=== PATIENT | female | born 1985 | race Caucasian/White ===

== ENCOUNTER 2023-12-20 11:44 | Outpatient (CLI) | payer OTHER, SELFPAY ==
[2023-12-20 12:06] LABS: Basophils Absolute Auto 0.03 K/mm3 (0.00-0.10); Basophils Percent Auto 0.4 % (0.0-1.0); Eosinophils Absolute Auto 0.05 K/mm3 (0.02-0.50); Eosinophils Percent Auto 0.7 % (1.0-6.0); Hematocrit 42.3 % (35.0-49.0); Immature Granulocyte Absolute 0.03 K/mm3 (0.00-0.00); Immature Granulocyte Percent A 0.4 % (0.0-0.0); Lymphocytes Absolute Auto 2.46 K/mm3 (1.10-4.50); Mean Corpuscular HGB Conc 33.1 g/dL (32-36); Mean Corpuscular Hemoglobin 30.6 pg (27.0-31.0); Mean Corpuscular Volume 92.4 fL (78.0-102.0); Mean Platelet Volume 10.4 fl (9.2-11.8); Monocytes Absolute Auto 0.29 K/mm3 (0.10-0.90); Neutrophils Absolute Auto 4.38 K/mm3 (1.70-7.20); Neutrophils Percent Auto 60.5 % (50.0-70.0); Platelet Count Result 357 K/mm3 (150-420); Red Blood Count 4.58 M/mm3 (4.20-5.40); Red Cell Distribution Width 13.5 % (11.6-14.4); White Blood Count 7.2 K/mm3 (4.8-10.8)
[2023-12-20 13:11] LABS: Alanine Aminotransferase 20 U/L (14-59); Albumin Level 3.6 g/dL (3.4-5.0); Alkaline Phosphatase 97 U/L (46-116); Anion Gap 13 mmol/L (4-12); Aspartate Amino Transferase 16 U/L (15-37); Bilirubin,Total 0.3 mg/dL (0.00-1.00); Blood Urea Nitrogen 13 mg/dL (7-18); Calcium 8.8 mg/dL (8.5-10.1); Carbon Dioxide 24 mmol/L (21-32); Chloride 102 mmol/L (98-108); Cholesterol 176 mg/dL (0-200); Estimated Glomerular Filt Rate > 60; Glucose 88 mg/dL (70-99); HDL Direct 52 mg/dL (40-60); LDL Cholesterol Calculated 110 mg/dL (<130); Osmolality Calculated 287 mOsm/kg (285-295); Potassium 4.2 mmol/L (3.5-5.1); Sodium 139 mmol/L (136-145); Total Protein 6.8 g/dL (6.4-8.2); Triglycerides 68 mg/dL (0-150)
[2023-12-20 13:24] LABS: Thyroid Stimulating Hormone Reflex 2.41 u/IU/mL (0.36-3.74)
== END 2023-12-20 11:45 | disposition home or self-care (01) ==
PROVIDERS: PCP Family Medicine; Visit Provider Family Medicine
DX: Z00.00 Encounter for general adult medical examination without abnormal findings (principal); E03.9 Hypothyroidism, unspecified
CPT/HCPCS: 36415; 80053; 80061; 84443; 85025

== ENCOUNTER 2024-03-15 11:58 | Outpatient (NON) | payer OTHER, SELFPAY | END 2024-03-15 11:59 | disposition home or self-care (01) | PROVIDERS: Visit Provider Family Medicine | DX: D23.62 Other benign neoplasm of skin of left upper limb, including shoulder (principal) | CPT/HCPCS: 88305 ==

== ENCOUNTER 2024-07-24 13:35 | Outpatient (CLI) | payer OTHER, SELFPAY ==
--- NOTE | ~2024-07-24 | XR_ITS ---
Clinical Indication: Cough, fever PA and lateral views of the chest: Comparison: None Findings: The lungs are clear, without evidence of focal consolidation or pleural effusion. Cardiome diastinal silhouette is within normal limits. Bones and soft tissues are unremarkable. Impression: Normal chest. Reviewed, dictated and finalized at [facility]. [facility] Impression: Normal chest.
== END 2024-07-24 13:36 | disposition home or self-care (01) ==
LOC: CHSIMG 13:36
PROVIDERS: PCP Family Medicine; Visit Provider Family Medicine
DX: R05.9 Cough, unspecified (principal)
CPT/HCPCS: 71046

== ENCOUNTER 2025-02-25 12:47 | Outpatient (CLI) | payer OTHER, SELFPAY ==
--- NOTE | ~2025-02-25 | MM_ITS ---
EXAMINATION: MM screening [facility] BI w rojas INDICATION: Asymptomatic, referred for screening mammogram COMPARISON: Baseline TECHNIQUE: Digital Breast Tomosynthesis CC, MLO views of Both breasts were obtained with computer-ai ded detection to assist in interpretation of the study. FINDINGS: The breasts are heterogeneously dense, which may obscure small masses. There is a focal asymmetry in the superior lateral right breast at middle depth, centered at 11.2 cm posterior to the nipple best visualized on the tomographic images MLO slice 61, CC slice 65. In addit ion, there is an asymmetry containing few punctate calcifications seen on the cc view in the retroare olar region at posterior depth centered at 15 cm posterior to the nipple and best visualized on tomog raphic images CC slice 57. Elsewhere, there are no mammographic features of malignancy. IMPRESSION: 1. Right breast asymmetries. 2. No evidence of malignancy in the Left breast. RECOMMENDATION: Right breast Diagnostic mammogram with true lateral, appropriate spot compression views and an ultras ound if needed. BI-RADS Category 0: Incomplete: Needs additional imaging evaluation. Reviewed, dictated and finalized at location B. IMPRESSION: 1. Right breast asymmetries. 2. No evidence of malignancy in the Left breast. RECOMMENDATION: Right breast Diagnostic mammogram with true lateral, appropriate spot compressi on views and an ultrasound if needed. BI-RADS Category 0: Incomplete: Needs additional imaging evaluation.
--- OUTSIDE RECORDS SUMMARY | 2025-02-25 12:51 | XMS_ITS | Encounter Summary ---
Author Organization [facility] Address [address] [place] [address] Care Team Providers Care Supervisor Receiving And Processing Name Role Phone Keisha Beckwith MD Primary Care Provider [phone] Encounter Details Date Type Department Care Team (Late st Contact Info) Description 01/12/2021 Lab Requisition [facility] [address] [place] [address] Autumn Faustin MD [address] [facility] [address] [place] [id number] Illness, unspecified Social History Tobacco Use Types Packs/Day Years Used Date Smoking Tobacco: Former Cigarettes Smokeless Tobacco: Never Comments:Quit 2016 Alcohol Use Standard Drinks/Week Comments Yes 0 (1 standard drink = 0.6 oz pur e alcohol) Occasional Comments No Sex and Gender Information Value Date Recorded Sex Assigned at Not on file Legal Sex Female 10:51 AM CDT Gender Identity Not on file Sexual Orientation Not on file 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 01/13/2021 1:44 PM CDT [facility] at 1344 CDT Microscopic Description and Comment Sections show a dermal glandular proliferation with papillomatosis and apocrine metaplasia. The overlying epidermis is slightly thickened with focal mild perivascular inflammation. There is no significant cytologic atypia, necrosis or increase in mitotic activity. The lesion extends to the inked margin. Negative for carcinoma. Reviewed in intradepartmental consensus. 01/13/2021 1:44 PM CDT [facility] Clinical History Ulcer of right nipple 01/13/2021 1:44 PM CDT [facility] Materials Received Received are 1 slide(s) labeled [id number] along with a copy of the outside pathology report. The materials originate from [facility], [address] [place] [address]. All original materials are returned to the referring institution, along with a copy of our final report. 01/13/2021 1:44 PM CDT [facility] Disclaimer The performance characteristics of all immunohistochemical and indirect immunofluorescence stains (if any) cited in this report were determined by the Histopathology [facility] of [facility]. Some of these tests were developed by our own laboratory and have not been cleared or approved by the US Food and Drug Administration. The FDA does not require this test to go through premarket FDA review. These tests are used for clinical purposes. They should not be regarded as investigational or for research. This laboratory is certified under the Clinical Laboratory Improvement Amendments (CLIA) as qualified to perform high complexity clinical laboratory testing. This case has been personally reviewed and interpreted by the attending (teaching) pathologist. 01/13/2021 1:44 PM CDT [facility] Case Report Surgical Pathology Report Case: [id number] Authorizing Provider: Autumn Faustin MD Collected: 01/12/2021 02:02 PM Ordering Location: [facility] Path[facility] Lab Received: 01/12/2021 02:02 PM Pathologist: Zhane Patel Mai, DO Specimen: Slide Consultation 01/13/2021 1:44 PM CDT [facility] Embedded Images 01/13/2021 1:44 PM CDT [facility] Pathology/Cytolo gy SURGICAL PATHOLOGY CONSULTATION AND REPORT ON REFERRED SLIDES PREPARED ELSEWHERE / Unknown 01/12/2021 2:02 PM CDT 01/12/2021 2:02 PM CDT Autumn Faustin MD LAB - PATHOLOGY/CYTOLOGY OR DERABLES Final Result Performing Organization Address City/State/[facility] Co de Phone Number [facility] [address] [phone] documented in this encounter Visit Diagnoses Diagnosis Illness, unspecified documented in this encounter Care Teams Supervisor Receiving And Processing Relationship Specialty Start Date End Date Keisha Beckwith MD [address] [place] [address] PCP - General 12/19/20 documented as of this encounter
--- OUTSIDE RECORDS SUMMARY | 2025-02-25 12:51 | XMS_ITS | Clinical Summary ---
Author Organization [facility] Address [address] [place] [address] Care Team Providers Care Aircraft Maintenance Supervisor Name Role Phone None, Provider MD Primary Care Provider Unavaila ble Allergies No known active allergies Medications No known medications Social History Tobacco Use Types Packs/Day Years Used Date Smoking Tobacco: Never Smokeless Tobacco: Never Tobacco Cessation:Counseling Given: Not Answered Comments No Sex and Gender Information Value Date Recorded Sex Assigned at Not on file Legal Sex Female 8:25 PM CHISEL GRINDER Gender Identity Not on file Sexual Orientation Not on file Last Filed Vital Signs Vital Sign Reading Time Taken Comments Blood Pressure 135/84 07/10/2022 8:32 PM CHISEL GRINDER Pulse 90 07/10/2022 8:32 PM CHISEL GRINDER Temperature 36.4 C (97.6 F) 07/10/2022 8:32 PM CHISEL GRINDER Respiratory Rate 16 07/10/2022 8:32 PM CHISEL GRINDER Oxygen Saturation 100% 07/10/2022 8:32 PM CHISEL GRINDER Inhaled Oxygen Concentration - - Weight 81.6 kg (180 lb) 07/10/2022 8:32 PM CHISEL GRINDER Height 172.7 cm (5' 8) 07/10/2022 8:32 PM CHISEL GRINDER Body Mass Index 27.37 07/10/2022 8:32 PM CHISEL GRINDER Plan of Treatment Health Maintenance Due Date Last Done Comments Cervical Cancer Screening Pa p Smear (Age 30 to 64) Every 3 Years 1984 Annual Physical 01/30/1987 Hepatitis C 01/30/2002 DTaP, Tdap and Td Vaccines ( 1 - Tdap) 01/30/2003 Hepatitis B Vaccines (1 of 3 - 19+ 3-dose series) 01/30/2003 Cervical Cancer Screening Pa p with HPV Testing (Age 30 to 64) Every 5 Years 01/30/2014 Cervical Cancer Screening wi th HPV 01/30/2014 Mammogram Screening 2024 COVID-19 Vaccine (2023-2 5 season) 2024 08/27/2021, 09/02/2020, 08/05/2020 HPV Vaccines Aged Out No longer eligi ble based on patient's age to complete this topic Meningococcal B Vaccine Aged Out No l onger eligible based on patient's age to complete this topic Meningococcal Vaccine Aged Out No silvina yocasta eligible based on patient's age to complete this topic Pneumococcal Vaccine: Pediatrics (0 to 5 Years) and At-Risk Patients (6 to 49 Years) Aged Out No longer eligible b ased on patient's age to complete this topic RSV Immunizations Under 20 Months Aged Out No longer eligible b ased on patient's age to complete this topic Insurance Care Teams Aircraft Maintenance Supervisor Relationship Specialty Start Date End Date None, Provider, PCP - General UNKNOWN PHYSICIAN SPECIALTY 07/10/22
--- OUTSIDE RECORDS SUMMARY | 2025-02-25 12:51 | XMS_ITS | Clinical Summary ---
Author Organization [facility] Address [address] [place] [address] Care Team Providers Care Life Specialist Name Role Phone Keisha Beckwith MD Primary Care Provider [phone] Source Comments [facility],non-owned Affiliates and Associated Physician Practices is amultiple site organization consisting of ambulatory clinics and hospital sitesin [place], [place], [place] and [place]. This disclosure is being madepursuant to the Care Everywhere program and may not contain all information available regarding this patient. Last updated 18.[facility] Allergies No known active allergies Medications * Be aware that medications may not be up to date on this document. Alwaysverify current medications with the patient. 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 Not on file Not on file Last Filed Vital Signs Vital Sign Reading Time Taken Comments Blood Pressure 119/80 01/08/2021 10:42 AM CDT Pulse 88 01/08/2021 10:42 AM CDT Temperature 37.1 C (98.8 F) 01/08/2021 10:42 AM CDT Respiratory Rate - - Oxygen Saturation 97% 01/08/2021 10:42 AM CDT Inhaled Oxygen Concentration - - Weight 110.2 kg (243 lb) 01/08/2021 10:42 AM CDT Height 172.7 cm (5' 8) 01/08/2021 10:42 AM CDT Body Mass Index 36.95 01/08/2021 10:42 AM CDT Plan of Treatment Health Maintenance Due Date Last Done Comments LIPID TESTING 1984 HIV SCREENING 01/30/1999 HEPATITIS C SCREENING 01/26/2002 DTAP/TDAP/TD VACCINES (1 - Tdap) 01/30/2003 HEPATITIS B VACCINE (1 of 3 - 19+ 3-dose series) 01/30/2003 HPV VACCINE (1 - 3-dose SCDM series) 01/30/2011 MAMMOGRAM 01/08/2023 01/08/2021 COVID-19 VACCINE (3 - 2023-2 5 season) 2024 09/02/2020, 08/05/2020 DEPRESSION SCREENING 08/08/2024 INFLUENZA VACCINE (#1) 2025 ZOSTER VACCINE (1 of 2) 01/30/2034 HIB VACCINE Aged Out No longer eligi ble based on patient's age to complete this topic MENINGOCOCCAL (Group B) VACCINE SHARED DECISION-MAKING Aged Out No longer eligible based on patient's age to complete this topic MENINGOCOCCAL GROUPS A/C/Y/W VACCINE Aged Out No longer eligible b ased on patient's age to complete this topic PNEUMOCOCCAL VACCINE Aged Out No long er eligible based on patient's age to complete this topic Procedures Procedure Name Priority Date/Time Associated Diagnosis Comments MM OUTSIDE MAMMOGRAM Routine 01/08/2021 12:12 PM CDT Abnormal MRI, breast from Last 3 Months or Most Recently Relevant to Health Maintenance Results * MM OUTSIDE MAMMO FILM READ (01/08/2021 12:12 PM CDT) Anatomical Region Laterality Modality Other 01/14/2021 9:03 AM CDT Impressions 01/19/2021 11:04 AM CDT IMPRESSION: 1. Asymmetry noted in the posterior slightly lateral right breast on the craniocaudal view, 13 cm from the nipple. Of note, no right MLO view is available at the time of this review. 2. No suspicious findings on diagnostic left mammography. 3. No suspicious findings on images provided of the targeted right breast ultrasound. 4. No suspicious findings noted on images submitted of the bilateral breast MRI scan. Of note, color dynamic images are not available. RECOMMENDATION: Diagnostic right mammogram with attention to the asymmetry in the posterior slightly lateral right breast. If indicated that time, ultrasound be performed. Follow-up with Dr. Faustin regarding the known papillomatosis of the right nipple. Patient will receive her results from and follow up with Dr. Faustin. Right breast: BI-RADS Category 0: Incomplete: Need additional imaging evaluation Left breast: BI-RADS 1: Negative OVERALL ASSESSMENT: BI-RADS CATEGORY 0: INCOMPLETE: NEED ADDITIONAL IMAGING EVALUATION. Note: The findings, conclusions and recommendations within this report do not replace the initial findings, conclusions and recommendations made at the facility where the study was performed, based upon the imaging and clinical condition at that time, and comparison with the prior report and clinical history is necessary. The provided images may or may not represent the lower sioux source data set and thus may contain changes, which may lower the sensitivity in the second opinion interpretation. This report was electronically signed by JESSENIA SUTHERLAND M.D. on 01/19/2021 11:04 AM . Narrative 01/19/2021 11:04 AM CDT EXAMINATION: RADIOLOGY CONSULTATION ON OUTSIDE IMAGIN. BILATERAL DIAGNOSTIC MAMMOGRAM AND BILATERAL TOMOSYNTHESIS, 2. LIMITED RIGHT BREAST ULTRASOUND, AND 3. BILATERAL DIAGNOSTIC BREAST MRI WITH AND WITHOUT CONTRAST DATE OF CONSULTATION: 01/14/2021 12:27 PM REASON FOR CONSULTATION / HISTORY: This is a 35-year-old female, who consulted with Dr. Faustin on 01/08/2021 secondary to history of florid papillomatosis of the right nipple. Patient reportedly first noted blood from the right nipple in November 2020. There was an ulceration of the right nipple that increased in size. She also had some clear/white nipple discharge as well as itching. Patient underwent bilateral diagnostic mammogram and right breast ultrasound 10/31/2020 at [facility], which were both reportedly interpreted as BI-RADS 2, with no suspicious findings. 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 Patient then underwent a breast MRI scan 12/11/2020 at [facility], which was reportedly interpreted as a BI-RADS Category 2 exam. Patient is seeing [address] Faustin regarding surgical management of the right nipple florid papillomatosis. We are asked to consult on her outside imaging. OUTSIDE STUDIES FOR REVIEW: BILATERAL DIAGNOSTIC MAMMOGRAM AND BILATERAL TOMOSYNTHESIS 10/31/2020, LIMITED RIGHT BREAST ULTRASOUND 11/13/2020 BILATERAL DIAGNOSTIC BREAST MRI WITH AND WITHOUT CONTRAST 12/11/2020 The outside final report was provided at the time of this second opinion. FACILITY WHERE STUDY PERFORMED: [facility] FINDINGS: Bilateral diagnostic mammography 10/31/2020: Images consist of bilateral craniocaudal and left mediolateral oblique projections with a total of 3 images. Of note, no right MLO view is available. Of note, due to disc were requested and we were unable to obtain the right MLO images on either of the discs. Radames synthesis images also submitted. Breast composition: Breast parenchyma is heterogeneously dense, which decreases the sensitivity of mammography No suspicious microcalcifications bilaterally. Asymmetry noted in the posterior lateral and central right breast on the craniocaudal view. This is 12.6 cm from the nipple. Otherwise, no abnormality. Targeted right breast ultrasound 11/13/2020: Ultrasound consist of 10 still images of the right breast labeled 12, 3, 6, and 9:00 around the nipple. There is some minimally ectatic ducts noted. No abnormality noted on this targeted ultrasound otherwise. Breast MRI scan 12/11/2020: There is marked background enhancement bilaterally and multiple small foci of enhancement. Bilateral breast MRI scan performed with without contrast. Of note, color dynamic images are not available. Due to patient's body habitus, the anterior aspect of the breast are not well evaluated as they are flat against the MR table. Multiple nonspecific foci of enhancement are noted bilaterally. No spiculated or suspicious area of enhancement. No enlarged axillary lymph nodes. There is probably asymmetric enhancement of the right areolar complex compare with with the left. Patient is reportedly post operative when this MRI was performed in this is nonspecific. Procedure Note Jessenia Sutherland MD - 01/19/2021 EXAMINATION: RADIOLOGY CONSULTATION ON OUTSIDE IMAGIN. BILATERAL DIAGNOSTIC MAMMOGRAM AND BILATERAL TOMOSYNTHESIS, 2. LIMITED RIGHT BREAST ULTRASOUND, AND 3. BILATERAL DIAGNOSTIC BREAST MRI WITH AND WITHOUT CONTRAST DATE OF CONSULTATION: 01/14/2021 12:27 PM REASON FOR CONSULTATION / HISTORY: This is a 35-year-old female, who consulted with Dr. Faustin on 01/08/2021 secondary to history of florid papillomatosis of the right nipple. Patient reportedly first noted blood from the right nipple in November 2020. There was an ulceration of theright nipple that increased in size. She also had some clear/white nipple discharge as well as itching. Patient underwent bilateral diagnostic mammogram and right breast ultrasound 10/31/2020 at [facility], which were both reportedly interpreted as BI-RADS 2, with no suspicious findings. 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 Patient then underwent a breast MRI scan 12/11/2020 at [facility], which was reportedly interpreted as a BI-RADS Category 2 exam. Patient is seeing Dr. Faustin regarding surgical management of the right nipple florid papillomatosis. We are asked to consult on her outside imaging. OUTSIDE STUDIES FOR REVIEW: BILATERAL DIAGNOSTIC MAMMOGRAM AND BILATERAL TOMOSYNTHESIS 10/31/2020, LIMITED RIGHT BREAST ULTRASOUND 11/13/2020 BILATERAL DIAGNOSTIC BREAST MRI WITH AND WITHOUT CONTRAST 12/11/2020 The outside final report was provided at the time of this secondopinion. FACILITY WHERE STUDY PERFORMED: [facility] FINDINGS: Bilateral diagnostic mammography 10/31/2020: Images consist of bilateral craniocaudal and left mediolateral oblique projections with a total of 3 images. Of note, no right MLO view is available. Of note, due to discwere requested and we were unable to obtain the right MLO images on either of the discs. Radames synthesis images also submitted. Breast composition: Breast parenchyma is heterogeneously dense, which decreases the sensitivity of mammography No suspicious microcalcifications bilaterally. Asymmetry noted in the posterior lateral and central right breast on the craniocaudal view.This is 12.6 cm from the nipple. Otherwise, no abnormality. Targeted right breast ultrasound 11/13/2020: Ultrasound consist of 10still images of the right breast labeled 12, 3, 6, and 9:00 around the nipple. There is some minimally ectatic ducts noted. No abnormality noted onthis targeted ultrasound otherwise. Breast MRI scan 12/11/2020: There is marked background enhancement bilaterally and multiple small foci of enhancement. Bilateral breast MRI scan performed with without contrast. Of note,color dynamic images are not available. Due to patient's body habitus, the anterior aspect of the breast are not well evaluated as they are flat against the MR table. Multiple nonspecific foci of enhancement are noted bilaterally. No spiculated or suspicious area of enhancement. Noenlarged axillary lymph nodes. There is probably asymmetric enhancement of the right areolar complex compare with with the left. Patient is reportedly post operative when this MRI was performed in this is nonspecific. IMPRESSION: 1. Asymmetry noted in the posterior slightly lateral right breast on the craniocaudal view, 13 cm from the nipple. Of note, no right MLO view is available at the time of this review. 2. No suspicious findings on diagnostic left mammography. 3. No suspicious findings on images provided of the targeted rightbreast ultrasound. 4. No suspicious findings noted on images submitted of the bilateral breast MRI scan. Of note, color dynamic images are not available. RECOMMENDATION: Diagnostic right mammogram with attention to the asymmetry in the posterior slightly lateral right breast. If indicated that time, ultrasound be performed. Follow-up with Dr. Faustin regarding the known papillomatosis of the right nipple. Patient will receive her results from and follow up with Dr. Faustin. Right breast: BI-RADS Category 0: Incomplete: Need additional imaging evaluation Left breast: BI-RADS 1: Negative OVERALL ASSESSMENT: BI-RADS CATEGORY 0: INCOMPLETE: NEED ADDITIONAL IMAGING EVALUATION. Note: The findings, conclusions and recommendations within this reportdo not replace the initial findings, conclusions and recommendations madeat the facility where the study was performed, based upon the imaging and clinical condition at that time, and comparison with the prior reportand clinical history is necessary. The provided images may or may not represent the lower sioux source data set and thus may contain changes, which may lower the sensitivity in the second opinion interpretation. This report was electronically signed by JESSENIA SUTHERLAND M.D. on01/19/2021 11:04 AM . us Autumn Faustin MD IMAGING Final Resul t from Last 3 Months or Most Recently Relevant to Health Maintenance Insurance [employer] Care Teams Life Specialist Relationship Specialty Start Date End Date Keisha Beckwith MD [address] [place] [address] PCP - General 12/19/20
== END 2025-02-25 12:48 | disposition home or self-care (01) ==
PROVIDERS: PCP Family Medicine; Visit Provider Family Medicine
DX: Z12.31 Encounter for screening mammogram for malignant neoplasm of breast (principal); R92.8 Other abnormal and inconclusive findings on diagnostic imaging of breast
CPT/HCPCS: 77063; 77067

== ENCOUNTER 2025-03-08 09:37 | Outpatient (CLI) | payer OTHER, SELFPAY ==
--- NOTE | ~2025-03-08 | MMUS_ITS ---
EXAMINATION: MM diagnostic mario RT w rojas, US breast RT complete HISTORY: Follow-up right breast asymmetries. TECHNIQUE: Additional 3-D tomosynthesis images of the right breast were performed and synthetic 2-D i mages were generated. CAD analysis was submitted and interpreted. High resolution complete right gael st ultrasound was performed. COMPARISON: 02/25/2025 BREAST PARENCHYMAL COMPOSITION: Dense: The breasts are extremely dense, which lowers the sensitivity of mammography. FINDINGS: MAMMOGRAPHIC FINDINGS: There are no suspicious masses, calcifications or architectural distortion in the right breast to sug gest malignancy. There are benign right breast calcifications. ULTRASOUND: Complete US of all 4 quadrants of the right breast/s and retroareolar region was reviewed. There are multiple cysts of the right breast, largest measuring 1 cm at 2:00, 10 cm from the nipple. No suspici ous masses are identified to suggest malignancy. IMPRESSION: 1. No evidence for malignancy in the right breast. Benign findings. 2. Routine yearly screening mammogram and regular clinical breast examination are recommended. BI-RADS Category 2: Benign finding(s). Reviewed, dictated and finalized at location B. IMPRESSION: 1. No evidence for malignancy in the right breast. Benign findings. 2. Routine yearly screening mammogram and regular clinical breast examination a re recommended. BI-RADS Category 2: Benign finding(s).
--- OUTSIDE RECORDS SUMMARY | 2025-03-08 09:41 | XMS_ITS | Encounter Summary ---
Author Organization [facility] Address [address] [place] [address] Care Team Providers Care Salt Washer Name Role Phone Keisha Beckwith MD Primary Care Provider [phone] Encounter Details Date Type Department Care Team (Late st Contact Info) Description 01/12/2021 Lab Requisition [facility]ology [facility] [address] [place] [address] Autumn Faustin MD [address] 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 01/13/2021 1:44 PM CDT [facility] at 1344 CDT Microscopic Description [...] outside pathology report. The materials originate from [facility], [address] [place] [address]. All original materials are returned to the referring institution, along with a copy of our final report. 01/13/2021 1:44 PM CDT [facility] Disclaimer The performance characteristics of all immunohistochemical and indirect immunofluorescence stains (if any) cited in this report were determined by the Histopathology Laboratory of [facility]. Some of these tests were developed [...] attending (teaching) pathologist. 01/13/2021 1:44 PM CDT [facility] Case Report Surgical Pathology Report Case: [id number] Authorizing Provider: Autumn Faustin MD Collected: 01/12/2021 02:02 PM Ordering Location: [facility] Received: 01/12/2021 02:02 PM Pathologist: Zhane Patel Mai, DO Specimen: Slide Consultation 01/13/2021 1:44 PM CDT [facility] Embedded Images 01/13/2021 1:44 PM CDT [facility] Pathology/Cytolo gy SURGICAL PATHOLOGY CONSULTATION AND REPORT ON REFERRED SLIDES PREPARED ELSEWHERE / Unknown 01/12/2021 2:02 PM CDT 01/12/2021 2:02 PM CDT Autumn Faustin MD LAB - PATHOLOGY/CYTOLOGY OR DERABLES Final Result Performing Organization Address City/State/[facility] Co de Phone Number [facility] [address] [phone] documented in this encounter Visit Diagnoses Diagnosis Illness, unspecified documented in this encounter Care Teams Salt Washer Relationship Specialty Start Date End Date Keisha Beckwith MD [address] [place] [address] PCP - General 12/19/20 documented as of this encounter
--- OUTSIDE RECORDS SUMMARY | 2025-03-08 09:41 | XMS_ITS | Clinical Summary ---
Author Organization [facility] [employer] Address [address] [place] [address] Care Team Providers Care [employer] Name Role Phone Keisha Beckwith MD Primary Care Provider Source Comments [facility] [employer],non-owned Affiliates and Associated Physician Practices is amultiple site organization consisting of ambulatory clinics and hospital sitesin [place], [place]. This disclosure is being madepursuant to the Care Everywhere program and may not contain all information available regarding this patient. 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, which were both reportedly interpreted as BI-RADS 2, with no suspicious findings. 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 Patient then underwent a breast MRI scan 12/11/2020 at [facility], which was reportedly interpreted as a BI-RADS [...] this second opinion. FACILITY WHERE STUDY PERFORMED: [facility] FINDINGS: Bilateral diagnostic mammography 10/31/2020: Images consist [...] right breast ultrasound 10/31/2020 at [facility], which were both reportedly interpreted as BI-RADS 2, with no suspicious findings. 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 Patient then underwent a breast MRI scan 12/11/2020 at [facility], which was reportedly interpreted as a BI-RADS [...] of this secondopinion. FACILITY WHERE STUDY PERFORMED: [facility] FINDINGS: Bilateral diagnostic mammography 10/31/2020: Images consist [...] images may or may not represent the [place] source data set and thus may contain changes, which may lower the sensitivity in the second opinion interpretation. This report was electronically signed by JESSENIA SUTHERLAND M.D. on01/19/2021 11:04 AM . us Autumn Faustin MD IMAGING Final Resul t from Last 3 Months or Most Recently Relevant to Health Maintenance Insurance [employer] Care Teams [employer] Relationship Specialty Start Date End Date Keisha Beckwith MD [address] [place] [address] PCP - General 12/19/20
--- OUTSIDE RECORDS SUMMARY | 2025-03-08 09:41 | XMS_ITS | Clinical Summary ---
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 Gender Identity Not on file Sexual Orientation Not on file Last Filed Vital Signs Vital Sign Reading Time Taken Comments Blood Pressure 135/84 07/10/2022 8:32 PM LINE BUILDER Pulse 90 07/10/2022 8:32 PM LINE BUILDER Temperature 36.4 C (97.6 F) 07/10/2022 8:32 PM LINE BUILDER Respiratory Rate 16 07/10/2022 8:32 PM LINE BUILDER Oxygen Saturation 100% 07/10/2022 8:32 PM LINE BUILDER Inhaled Oxygen Concentration - - Weight 81.6 kg (180 lb) 07/10/2022 8:32 PM LINE BUILDER Height 172.7 cm (5' 8) 07/10/2022 8:32 PM LINE BUILDER Body Mass Index 27.37 07/10/2022 8:32 PM LINE BUILDER Plan of Treatment Health Maintenance Due Date Last Done Comments Cervical Cancer Screening Pa p Smear (Age 30 to 64) Every 3 Years 1984 Annual Physical 01/30/1987 Hepatitis C 01/30/2002 DTaP, Tdap and Td Vaccines ( 1 - Tdap) 01/30/2003 Hepatitis B Vaccines (1 of 3 - 19+ 3-dose series) 01/30/2003 HPV Vaccines (1 - 3-dose SCD M series) 01/30/2011 Cervical Cancer Screening Pa p with HPV Testing (Age 30 to 64) Every 5 Years 01/30/2014 Cervical Cancer Screening wi th HPV 01/30/2014 Mammogram Screening 2024 COVID-19 Vaccine (2023-2 5 season) 2024 08/27/2021, 09/02/2020, 08/05/2020 Meningococcal B Vaccine Aged Out No l [...] patient's age to complete this topic Insurance [place] [id number] Care Teams Rock Crusher Operator Relationship Specialty Start Date End Date None, Provider, PCP - General UNKNOWN PHYSICIAN SPECIALTY 07/10/22
== END 2025-03-08 09:38 | disposition home or self-care (01) ==
LOC: CHSIMG 09:38
PROVIDERS: PCP Family Medicine; Visit Provider Family Medicine
DX: R92.8 Other abnormal and inconclusive findings on diagnostic imaging of breast (principal)
CPT/HCPCS: 76641; 77061; 77065; G0279